=== PATIENT | female | born 1990 | race Caucasian/White ===

== ENCOUNTER 2018-02-16 23:09 | Emergency (ER) | payer MEDICAID ==
[2018-02-16] MEDS ORDERED: Ondansetron 4 MG/2 ML SDV IVPUSH ONE (23:30)
[2018-02-16] MEDS ORDERED: Sodium Chloride 0.9% 1,000 ML IV SCH (23:30)
[2018-02-16] MEDS ORDERED: HYDROmorphone 0.5 MG/0.5 ML SYRINGE IVPUSH STA (23:49)
--- NOTE | 2018-02-16 23:58 | EDM.PDOC ---
ED HPI GENERAL MEDICAL PROBLEM - General Chief Complaint: Abdominal Pain Stated Complaint: nausea Time Seen by Provider: 02/16/18 23:24 Source of Information: Reports: Patient, Family (Mother) History Limitations: Reports: No Limitations - History of Present Illness INITIAL COMMENTS - FREE TEXT/NARRATIVE: The patient states that she developed sharp right lower quadrant abdominal pain around 22:15 this evening. Soon after she developed nausea, then emesis. The pain is made worse if she moves. She feels better if she is in a flexed position. No recent fever. No recent constipation or diarrhea. No urinary symptoms. No prior similar symptoms. The patient's LMP was 02/11/2018, finishing yesterday. Her last oral solid food was between 20:30 and 21:00 this evening. The patient's PCP is Dr. Mackay. Right Lower Abdomen Pain Score (Numeric/FACES): 6 - Related Data Allergies Allergy/AdvReac Type Severity Reaction Status Date / Time mold Allergy Difficulty Verified 02/16/18 23:23 Breathing pet dander Allergy Sneezing Uncoded 02/16/18 23:23 smoke Allergy Difficulty Uncoded 02/16/18 23:23 Breathing Home Meds: Home Meds Control 02/16/18 [History] Cetirizine [ZyrTEC] 10 mg PO DAILY 02/16/18 [History] Fluticasone/Salmeterol [Advair 250-50 Diskus] 1 puff INH DAILY 02/16/18 [History ] Montelukast [Singulair] 10 mg PO BEDTIME 02/16/18 [History] Sertraline [Zoloft] 50 mg PO BEDTIME 02/16/18 [History] Past Medical History HEENT History: Reports: Allergic Rhinitis, Impaired Vision Respiratory History: Reports: Asthma [employer]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: Psychiatric History: Reports: ADHD, Anxiety - Infectious Disease History Infectious Disease History: Reports: Chicken Pox, Influenza - Past Surgical History HEENT Surgical History: Reports: Myringotomy w Tube(s) (bilateral), Oral Surgery (wisdom teeth extraction), Tonsillectomy Social & Family History - Tobacco Use Smoking Status *Q: Never Smoker - Caffeine Use Caffeine Use: Reports: None - Alcohol Use Alcohol Use History: Yes Alcohol Use Frequency: Socially - Recreational Drug Use Recreational Drug Use: No - Living Situation & Occupation Living situation: Reports: Single, with Family (Daughter) Occupation: Student ([employer]) ED ROS GENERAL - Review of Systems Review Of Systems: ROS reveals no pertinent complaints other than HPI. ED EXAM, GI/ABD - Physical Exam Exam: See Below Exam Limited By: No Limitations General Appearance: Alert, WD/WN, Mild Distress (Appears uncomfortable) Eyes: Bilateral: Normal Appearance, EOMI Ears: Normal External Exam, Hearing Grossly Normal Nose: Normal Inspection, No Blood Throat/Mouth: Normal Inspection, Normal Lips, Normal Voice, No Airway Compromise Head: Atraumatic, Normocephalic Neck: Normal Inspection, Full Range of Motion Respiratory/Chest: No Respiratory Distress, Lungs Clear, Normal Breath Sounds, No Accessory Muscle Use Cardiovascular: Normal Peripheral Pulses, Regular Rate, Rhythm, No Edema, No Gallop, No JVD, No Murmur, No Rub GI/Abdominal Exam: Soft, No Organomegaly, No Distention, No Abnormal Bruit, No Mass, Rebound (RLQ only), Tender (Right lower quadrant only. Nontender elsewhere , although Rovsing sign present.), Abnormal Bowel Sounds (diminished), Other ( Obturator sign present. Psoas sign present. Heel drop sign present.). No: Guarding (Female) Exam: Deferred Rectal (Female) Exam: Deferred Back Exam: Normal Inspection, Full Range of Motion. No: CVA Tenderness (L), CVA Tenderness (R) Extremities: Normal Inspection, Normal Range of Motion, No Pedal Edema, Normal Capillary Refill Neurological: Alert, Oriented, Normal Cognition, No Motor/Sensory Deficits Psychiatric: Normal Affect Skin Exam: Warm, Dry, Intact, Normal Color, No Rash Course - Vital Signs Last Recorded V/S: Last Vital Signs Temp 36.2 C 02/16/18 23:18 Pulse 94 02/16/18 23:18 Resp 16 02/16/18 23:18 BP 131/81 02/16/18 23:18 Pulse Ox 100 02/16/18 23:18 - Orders/Labs/Meds Orders: Active Orders 24 hr Category Date Time Status Abdomen Pelvis w Cont [CT] Stat Exams 02/16/18 23:48 Taken CBC WITH MANUAL DIFF [HEME] Stat Lab 02/16/18 23:48 Results HCG QUALITATIVE,URINE [URCHEM] Stat Lab 02/16/18 23:48 Ordered UA W/MICROSCOPIC [URIN] Stat Lab 02/16/18 23:48 Ordered Sodium Chloride 0.9% [Normal Saline] 1,000 ml Med 02/16/18 23:30 Active IV ASDIRECTED Medication Orders Sodium Chloride (Normal Saline) 1,000 mls @ 150 mls/hr IV ASDIRECTED ANDREA Last Admin: 02/17/18 00:00 Dose: 150 mls/hr Labs: Laboratory Tests 02/17/18 02/17/18 Range/Units 00:00 00:00 WBC 6.45 (3.98-10.04) K/mm3 RBC 4.57 (3.98-5.22) M/mm3 Hgb 13.0 (11.2-15.7) gm/L Hct 39.6 (34.1-44.9) % MCV 86.7 (79.4-94.8) fl MCH 28.4 (25.6-32.2) pg MCHC 32.8 (32.2-35.5) g/dl RDW Std Deviation 38.5 (36.4-46.3) fL Plt Count 255 (182-369) K/mm3 MPV 9.7 (9.4-12.3) fl Sodium 145 (136-145) mEq/L Potassium 3.3 L (3.5-5.1) mEq/L Chloride 107 (98-107) mEq/L Carbon Dioxide 25 (21-32) mEq/L Anion Gap 16.3 H (5-15) BUN 8 (7-18) mg/dL Creatinine 0.8 (0.55-1.02) mg/dL Est Cr Clr Drug Dosing 92.02 mL/min Estimated GFR (MDRD) > 60 (>60) mL/min BUN/Creatinine Ratio 10.0 L (14-18) Glucose 117 H (74-106) mg/dL Calcium 8.9 (8.5-10.1) mg/dL Total Bilirubin 0.3 (0.2-1.0) mg/dL AST 15 (15-37) U/L ALT 19 (14-59) U/L Alkaline Phosphatase 46 (46-116) U/L Total Protein 7.6 (6.4-8.2) g/dl Albumin 4.2 (3.4-5.0) g/dl Globulin 3.4 gm/dL Albumin/Globulin Ratio 1.2 (1-2) Lipase 122 (73-393) U/L Meds: Medications Generic Name Dose Route Start Last Admin Trade Name Fremegan PRN Reason Stop Dose Admin Sodium Chloride 1,000 mls @ 150 mls/hr 02/16/18 23:30 02/17/18 00:00 Normal Saline IV 150 mls/hr ASDIRECTED ANDREA Administration Discontinued Medications Generic Name Dose Route Start Last Admin Trade Name Leeq PRN Reason Stop Dose Admin Hydromorphone HCl 0.5 mg 02/16/18 23:49 02/17/18 00:04 Dilaudid IVPUSH 02/16/18 23:50 0.5 mg ONETIME STA Administration Ondansetron HCl 4 mg 02/16/18 23:30 02/17/18 00:00 Zofran IVPUSH 02/16/18 23:31 4 mg ONETIME ONE Administration - Re-Assessments/Exams Free Text/Narrative Re-Assessment/Exam: 02/16/18 23:50 The patient's right lower quadrant pain and tenderness is concerning for acute appendicitis. I have ordered blood work, a urinalysis, a urine test, and a CT scan of the abdomen and pelvis with oral and IV contrast. The patient will receive Dilaudid, Zofran, and IV fluid. 02/17/18 03:30 CT of the abdomen and pelvis with oral and IV contrast is read by [facility] as: 1. Small amount of free fluid in the cul-de-sac consistent with a recently ruptured ovarian cyst. No current ovarian cyst is demonstrated 2. Normal appendix right lower quadrant 3. Moderate constipation with predominance of stool in the rectum Departure - Departure Time of Disposition: 03:35 Disposition: Home, Self-Care 01 Condition: Good Clinical Impression: Ruptured ovarian cyst - Discharge Information *PRESCRIPTION DRUG MONITORING PROGRAM REVIEWED*: Not Applicable *COPY OF PRESCRIPTION DRUG MONITORING REPORT IN PATIENT AMBROSE: Not Applicable Referrals: Ema Phan MD [Primary Care Provider] - Forms: ED Department Discharge Additional Instructions: You were seen in the emergency room for lower right abdominal pain, nausea, and vomiting. Workup in the ER included blood work, a urinalysis, a urine test, and a CT scan of your abdomen and pelvis. The CT scan found that you recently ruptured a right ovarian cyst. The remainder of your workup was unremarkable. You do not have pancreatitis. You do not have a urinary tract infection. You are not . You may continue to have discomfort for two or three days. Take over-the- counter ibuprofen as needed. If any other problems, please do not hesitate to return to the ER. - My Orders Last 24 Hours: My Active Orders 02/16/18 23:30 Sodium Chloride 0.9% [Normal Saline] 1,000 ml IV ASDIRECTED 02/16/18 23:48 Abdomen Pelvis w Cont [CT] Stat CBC WITH MANUAL DIFF [HEME] Stat HCG QUALITATIVE,URINE [URCHEM] Stat UA W/MICROSCOPIC [URIN] Stat - Assessment/Plan Last 24 Hours: My Active Orders 02/16/18 23:30 Sodium Chloride 0.9% [Normal Saline] 1,000 ml IV ASDIRECTED 02/16/18 23:48 Abdomen Pelvis w Cont [CT] Stat CBC WITH MANUAL DIFF [HEME] Stat HCG QUALITATIVE,URINE [URCHEM] Stat UA W/MICROSCOPIC [URIN] Stat
--- NOTE | 2018-02-17 07:41 | CT ---
CT abdomen and pelvis Technique: Multiple axial sections were obtained from above the dome of the diaphragm inferiorly through the pubic symphysis. Intravenous and oral contrast was utilized. Delayed images were obtained through the bladder. Findings: Visualized lung bases show nothing acute. Liver shows no focal parenchymal abnormality. Spleen appears within normal limits. Adrenal glands show no nodule. Pancreas appears within normal limits. Gallbladder contains no calcified gallstones. Kidneys show symmetric contrast enhancement without hydronephrosis or mass. Appendix is seen which is normal in size. No pelvic mass or adenopathy is seen. Minimal free fluid is seen within the pelvis likely representing physiologic fluid. Mild increased stool seen within portions of colon. Delayed images show contrast within the distal ureters and within the bladder. Impression: 1. Slight increased stool within the colon. 2. Appendix appears normal in size. 3. Minimal free fluid within the pelvis likely representing physiologic fluid. Diagnostic code #2 I agree with preliminary report issued by [facility] ([facility] report finalized on 02/17/18, 3:09 AM Central Time)
== END 2018-02-17 03:39 | disposition home or self-care (01) ==
LOC: JD.ED 23:09
DX: N83.201 Unspecified ovarian cyst, right side (principal); Z91.018 Allergy to other foods; Z91.09 Other allergy status, other than to drugs and biological substances; Z79.899 Other long term (current) drug therapy
CPT/HCPCS: 36415; 74177; 80053; 81001; 81025; 83690; 85007; 85027; 96361; 96374; 96375; 99284; J1170; J2405; J7040